=== PATIENT | female | born 1985 | race Caucasian/White ===

== ENCOUNTER 2016-04-28 11:45 | Emergency (ER) | payer OTHER ==
[~2016-04-28] VITALS: Ht 149.9 cm; Wt 66.2 kg
[~2016-04-28 11:45] MED LIST: CLEOCIN HCL300 MG PO; KEFLEX250 MG PO; PNV-DHA1 SGL PO
[2016-04-28 12:07] VITALS: BP 120/74
--- NOTE | 2016-04-28 12:55 | NUR ---
Pt taken to bed 8.
[2016-04-28] MEDS ORDERED: NACL 0.9% 1,000 ML IV ONE (13:05)
[2016-04-28] MEDS ORDERED: ONDANSETRON 4 MG/2 ML VIAL IVP ONE ×2 (13:05→15:05)
--- NOTE | 2016-04-28 13:14 | NUR ---
30/F presents to ED for evaluation of N/V/D since 0400 this morning. Pt states "I woke up to go to the gym and started having vomiting and diarrhea." Pt also reports having back pain "down my spine." Patient was noted with vomiting at bedisde. Emesis appears yellow in color, small amount in bag. Patient c/o nausea. Pt also c/o 9/10 pain to back, constant, also c/o pain to RLQ and epigastric area. Patient states "I have an ovarian cyst but I don't remember which side." Patient is AOX4, ambulatory with steady gait. Lungs clear bilaterally. Abdomen soft, non tender, hypoactive bowel sounds x4 quadrants. VSS at this time. Pt placed on youth nutritional monitor, pulse oximetry and blood pressure monitor. VSS.
--- NOTE | 2016-04-28 13:27 | NUR ---
Patient provided with warm blanket and placed in position of comfort. No visible signs of distress noted.
[2016-04-28] MEDS ORDERED: KETOROLAC 30 MG/ML VIAL IVP ONE (14:00)
--- NOTE | 2016-04-28 14:30 | NUR ---
Dr. Turk evaluating patient at bedside.
[2016-04-28] MEDS ORDERED: MORPHINE SULFATE 4 MG/ML SYR IVP ONE (14:35)
--- NOTE | 2016-04-28 14:46 | NUR ---
Patient taken to CT via w/c.
--- NOTE | 2016-04-28 14:55 | NUR ---
Pt returned from CT via w/c.
--- NOTE | 2016-04-28 15:02 | NUR ---
Pt c/o nausea at this time. Dr. Turk made aware.
--- NOTE | 2016-04-28 15:30 | NUR ---
Patient appears to be resting comfortably in bed. Vital Signs within normal limits. Respirations even and unlabored. Pain is improved 0/10. Pt provided with water, tolerating well. No vomiting noted.
[2016-04-28 15:59] VITALS: BP 107/58
--- NOTE | 2016-04-28 16:00 | NUR ---
IV removed, catheter intact and site benign. Applied folded 4x4 gauze and tape to stop bleeding.
--- NOTE | 2016-04-28 16:30 | NUR ---
Patient discharged with v/s stable. Written and verbal after care instructions given and explained. Patient alert, oriented and verbalized understanding of instructions. Ambulatory with steady gait. All questions addressed prior to discharge. ID band removed. Patient advised to follow up with PMD. Rx of IMODIUM,NORCO,ZOFRAN,MOTRIN given. Patient educated on indication of medication including possible reaction and side effects. Opportunity to ask questions provided and answered.
--- NOTE | 2016-04-28 16:30 | NUR ---
Chart checked and completed. The patient's care was reviewed and supervised by Isabell Cueva RN.
== END 2016-04-28 16:30 | disposition home or self-care (01) ==
LOC: MED 11:45
DX: R10.31 Right lower quadrant pain (principal); R10.13 Epigastric pain; R11.2 Nausea with vomiting, unspecified; R19.7 Diarrhea, unspecified
CPT/HCPCS: 36415; 74176; 80053; 81001; 81025; 83690; 85025; 87086; 96361; 96374; 96375; 96376; 99285; J1885; J2270; J2405; J7030

== ENCOUNTER 2016-08-18 22:35 | Emergency (ER) | payer OTHER ==
[~2016-08-18] VITALS: Ht 149.9 cm; Wt 66.2 kg
[2016-08-18 22:46] VITALS: BP 121/72
--- NOTE | 2016-08-19 00:07 | NUR ---
TO ER BED 3
--- NOTE | 2016-08-19 00:10 | NUR ---
31Y F BIB SELF C/O SORE THROAT AND BODY ACHES WITH LEFT EAR PAIN X 4 DAYS 9/10 PAIN. PT DENIES ANY VOMIT/DIARRHEA BUT STATES SHE IS NAUSEATED. PT DENIES ANY SOB, CP AT THE MOMENT. PT IS AAO X 4.
[2016-08-19] MEDS ORDERED: IBUPROFEN 800 MG TAB PO ONE (00:35)
[2016-08-19] MEDS ORDERED: PENICILLIN G BENZATHINE C-R 1.2 MU/2 ML SYR IM ONE (00:35)
[2016-08-19 01:05] VITALS: BP 114/63
--- NOTE | 2016-08-19 01:05 | NUR ---
Patient discharged with v/s stable. Written and verbal after care instructions given and explained. Patient verbalized understanding. Ambulatory with steady gait. All questions addressed prior to discharge. Advised to follow up with PMD.
== END 2016-08-19 01:05 | disposition home or self-care (01) ==
LOC: MED 22:35
DX: J02.0 Streptococcal pharyngitis (principal); R03.0 Elevated blood-pressure reading, without diagnosis of hypertension
CPT/HCPCS: 96372; 99283; J0558

== ENCOUNTER 2017-04-24 22:16 | Emergency (ER) | payer OTHER ==
[~2017-04-24] VITALS: Ht 149.9 cm; Wt 74.4 kg
[2017-04-24 22:18] VITALS: BP 119/62
--- NOTE | 2017-04-24 22:28 | NUR ---
AMBULATED TO ER OF4 FROM [facility]
--- NOTE | 2017-04-24 22:30 | NUR ---
PATIENT IS A 31 Y/O FEMALE WHO PRESENTS TO THE ED C/O CHEST PAIN. PT STATES, "I CHEST AND THROAT WERE HURTING TODAY." PT REPORTS 8/10 ACHING CHEST PAIN THAT DOES NOT RADIATE. PT REPORTS SOREATHROAT. PT DENIES CP, SOB, N/V/D. PT AAOX4, RR EVEN/UNLABORED. PT REPOSITIONED FOR COMFORT, PT SITTING IN CHAIR. ER MD DR. ROBERSON NOTIFIED. WILL CONTINUE TO MONITOR.
[2017-04-25] MEDS ORDERED: ONDANSETRON 4 MG ODT PO ONE (00:40)
[2017-04-25] MEDS ORDERED: KETOROLAC 60 MG/2 ML VIAL IM ONE (01:10)
[2017-04-25 02:29] VITALS: BP 125/73
--- NOTE | 2017-04-25 02:29 | NUR ---
Patient discharged with v/s stable. Written and verbal after care instructions given and explained. Patient alert, oriented and verbalized understanding of instructions. Ambulatory with steady gait. All questions addressed prior to discharge. ID band removed. Patient advised to follow up with PMD. Rx of IBUPROFEN 800MG AND ZOFRAN 4MG given. Patient educated on indication of medication including possible reaction and side effects. Opportunity to ask questions provided and answered.
== END 2017-04-25 02:29 | disposition home or self-care (01) ==
LOC: MED 22:16
DX: J06.9 Acute upper respiratory infection, unspecified (principal)
CPT/HCPCS: 71045; 81002; 81025; 93005; 96372; 99284; J1885; S0119

== ENCOUNTER 2017-07-14 02:00 | Emergency (ER) | payer OTHER ==
[~2017-07-14] VITALS: Ht 149.9 cm; Wt 77.1 kg
[2017-07-14 02:06] VITALS: BP 131/70
--- NOTE | 2017-07-14 02:13 | NUR ---
PT TAKEN TO BED 3
--- NOTE | 2017-07-14 02:14 | NUR ---
PATIENT PRESENTS TO ED WITH LEFT FLANK PAIN AND RIGHT LOWER PELVIC PAIN X4 DAYS. PT DENIES N/V/D; SKIN IS PINK/WARM/DRY; AAOX4 WITH EVEN AND STEADY GAIT; LUNGS CLEAR BL; HR EVEN AND REGULAR; PT DENIES ANY FEVER, CP, SOB, OR COUGH AT THIS TIME; PATIENT STATES PAIN OF 8/10 AT THIS TIME; VSS; PATIENT POSITIONED FOR COMFORT; HOB ELEVATED; BEDRAILS UP X1; BED DOWN. ER MD MADE AWARE OF PT STATUS.
[2017-07-14] MEDS ORDERED: NACL 0.9% 1,000 ML IV ONE (02:20)
--- NOTE | 2017-07-14 02:20 | NUR ---
Dr. Palencia evaluating patient.
[2017-07-14 02:52] LABS: APPEARANCE,URINE CLEAR (CLEAR); BILIRUBIN,URINE NEGATIVE (NEGATIVE); BLOOD, URINE TRACE-I (NEGATIVE); COLOR,URINE YELLOW (YELLOW); LEUKOCYTE ESTERASE ,URINE NEGATIVE (NEGATIVE); NITRITE, URINE NEGATIVE (NEGATIVE); PH,URINE 7.5 (5.0-9.0); UGLUCOSE NEGATIVE (NEGATIVE)
[2017-07-14 02:52] LABS: BASOPHILS # (AUTO) 0.4 K/uL (0.00-0.22); BASOPHILS % (AUTO) 4.4 % (0.0-2.0); EOSINOPHILS # (AUTO) 0.1 K/uL (0-0.4); EOSINOPHILS % (AUTO) 0.7 % (0.0-4.0); HEMATOCRIT 39.6 % (36-48); HEMOGLOBIN 13.3 g/dL (12.0-16.0); LYMPHOCYTES # (AUTO) 1.6 K/uL (2.5-16.5); LYMPHOCYTES % (AUTO) 15.3 % (20.5-51.1); MEAN CORPUSCULAR HEMOGLOBIN 30 pg (27-31); MEAN CORPUSCULAR HGB CONC 34 g/dL (33-37); MEAN CORPUSCULAR VOLUME 88.9 fL (80-94); MONOCYTES # (AUTO) 0.5 K/uL (0.8-1.0); NEUTROPHILS # (AUTO) 7.6 K/uL (1.8-7.7); NEUTROPHILS % (AUTO) 74.6 % (42.2-75.2); PLATELET COUNT (AUTO) 254 K/uL (140-450); RED BLOOD CELL COUNT(AUTO) 4.45 MIL/uL (4.20-5.40); RED CELL DISTRIBUTION WIDTH 12.1 % (11.6-13.7); WHITE BLOOD COUNT (AUTO) 10.2 K/uL (4.8-10.8)
[2017-07-14 03:03] LABS: ANION GAP 9.8 (8-16); CARBON DIOXIDE 29.5 mmol/L (21-32); CREATININE 0.8 mg/dL (0.6-1.3); POTASSIUM 3.3 mmol/L (3.5-5.1)
[2017-07-14 03:09] LABS: ALBUMIN 3.5 g/dL (3.4-5.0); TOTAL BILIRUBIN 0.3 mg/dL (0.0-1.0)
[2017-07-14 03:09] LABS: RBC,URINE 3-10 (FEW) /HPF (0-5); URINE AMORPHOUS URATE 2+ /HPF (None Seen); WBC,URINE 0-5 (RARE) /HPF (0-5)
--- NOTE | 2017-07-14 03:38 | NUR ---
Dr. Palencia re-evaluating patient.
--- NOTE | 2017-07-14 03:45 | NUR ---
X-Ray at bedside.
[2017-07-14] MEDS ORDERED: ONDANSETRON 4 MG/2 ML VIAL IVP ONE (04:15)
[2017-07-14 04:43] VITALS: BP 131/70
--- NOTE | 2017-07-14 04:43 | NUR ---
Patient discharged with v/s stable. Written and verbal after care instructions given and explained. Patient alert, oriented and verbalized understanding of instructions. Ambulatory with steady gait. All questions addressed prior to discharge. ID band removed. Patient advised to follow up with PMD. Rx of MOTRIN, ZOFRAN given. Patient educated on indication of medication including possible reaction and side effects. Opportunity to ask questions provided and answered.
== END 2017-07-14 04:43 | disposition home or self-care (01) ==
LOC: MED 02:00
DX: R10.31 Right lower quadrant pain (principal); R03.0 Elevated blood-pressure reading, without diagnosis of hypertension; R11.0 Nausea
CPT/HCPCS: 36415; 74018; 80053; 81001; 84702; 85025; 96361; 96374; 99285; J2405; J7030; Q0092

== ENCOUNTER 2017-09-22 15:37 | Emergency (ER) | payer OTHER ==
[~2017-09-22] VITALS: Ht 149.9 cm; Wt 77.1 kg
[2017-09-22 15:41] VITALS: BP 129/73
--- NOTE | 2017-09-22 15:50 | NUR ---
PT. CAME INTO THE ED W COMPLAINT OF L KNEE PAIN DOWN TO THE CALF X 3 WEEKS. PT. IS AAOX4, RR EVEN AND UNLABORED . PT. HAS 6/10 PAIN IN L KNEE AND CALF AND CALDERON THAT IS SHARP AND NON RADIATING. PT. STATES " I HAVE BEEN NAUSEOUS FOR 3 DAYS". PT. DENIES CHEST PAIN, DENIES SOB, DENIES DIAHRRHEA. ER MD NOTIFIED. SAFETY PRECAUTIONS IMPLEMENTED. AT BEDSIDE. WILL CONTIUNUE TO MONITOR.
[2017-09-22 16:33] LABS: BASOPHILS # (AUTO) 0.1 K/uL (0.00-0.22); BASOPHILS % (AUTO) 0.7 % (0.0-2.0); EOSINOPHILS # (AUTO) 0.1 K/uL (0-0.4); EOSINOPHILS % (AUTO) 0.8 % (0.0-4.0); HEMATOCRIT 38.8 % (36-48); LYMPHOCYTES # (AUTO) 1.3 K/uL (2.5-16.5); LYMPHOCYTES % (AUTO) 14.5 % (20.5-51.1); MEAN CORPUSCULAR HEMOGLOBIN 30 pg (27-31); MEAN CORPUSCULAR HGB CONC 33 g/dL (33-37); MEAN CORPUSCULAR VOLUME 88.3 fL (80-94); MONOCYTES # (AUTO) 0.3 K/uL (0.8-1.0); MONOCYTES % (AUTO) 3.3 % (1.7-9.3); NEUTROPHILS # (AUTO) 7.1 K/uL (1.8-7.7); NEUTROPHILS % (AUTO) 80.7 % (42.2-75.2); PLATELET COUNT (AUTO) 261 K/uL (140-450); RED CELL DISTRIBUTION WIDTH 12.8 % (11.6-13.7); WHITE BLOOD COUNT (AUTO) 8.8 K/uL (4.8-10.8)
[2017-09-22 16:55] LABS: CHLORIDE 103 mmol/L (98-107); CREATININE 0.9 mg/dL (0.6-1.3); GFR ARICAN-AMERICAN 95 mL/min (>90); GLUCOSE 107 mg/dL (74-106); SODIUM SERUM 137 mmol/L (136-145); UREA NITROGEN, BLOOD 10 mg/dL (7-18)
--- NOTE | 2017-09-22 16:55 | NUR ---
PT. RESTING COMFORTABLY IN BED, RR EVEN AND UNLABORED. WILL CONTINUE TO MONITOR.
[2017-09-22] MEDS ORDERED: LORazepam 2 MG/ML VIAL IM ONE (17:00)
[2017-09-22 17:01] LABS: ACETAMINOPHEN 1.1 ug/ml (10-30); ALBUMIN 3.7 g/dL (3.4-5.0); ASPARTATE AMINOTRANSFERASE 9 U/L (15-37); TOTAL BILIRUBIN 0.4 mg/dL (0.0-1.0)
[2017-09-22 17:02] LABS: SALICYLATE < 2.8 mg/dL (2.8-20.0)
[2017-09-22 17:24] LABS: BARBITURATE, URINE NEG. ng/ml (NEG <=200); BENZODIAZEPINE, URINE NEG. ng/mL (NEG <=200); CANNABINOID, URINE NEG. ng/mL (NEG <=50); COCAINE, URINE NEG. ng/mL (NEG <=300); OPIATE, URINE NEG. ng/mL (NEG <=2000); PHENCYCLIDINE SCREEN,URINE NEG. ng/mL (NEG <=25)
--- NOTE | 2017-09-22 18:00 | NUR ---
PT. RESTING COMFORTABLY IN BED, RR EVEN AND UNLABORED. WILL CONTINUE TO MONITOR.
[2017-09-22 18:11] VITALS: BP 132/72
== END 2017-09-22 18:11 | disposition home or self-care (01) ==
LOC: MED 15:37
DX: F41.9 Anxiety disorder, unspecified (principal)
CPT/HCPCS: 36415; 80053; 80305; 85025; 93005; 96372; 99285; G0480; G0482; J2060

== ENCOUNTER 2017-12-09 11:45 | Emergency (ER) | payer OTHER ==
[~2017-12-09] VITALS: Ht 149.9 cm; Wt 79.0 kg
[2017-12-09 12:05] VITALS: BP 137/77
--- NOTE | 2017-12-09 12:10 | NUR ---
PT TAKEN TO ROOM 10
--- NOTE | 2017-12-09 12:12 | NUR ---
32 YEAR OLD FEMALE RETURNED TO THE ED AFTER 2 DAYS DUE TO WORSENING COLD SYMPTOMS. PT STATED THAT 2 DAYS AGO SHE CAME BY AMBULACE AND DX WITH A SINUS INFECTION. SHE WAS GIVEN MEDICATION (ABX AND MUCINEX) BUT BELIEVES HER SYMPTOMS ARE GETTING WORSE. PT STATES HER RIGHT EAR IS CLOGGED AFFECTING HER HEARING, HER NECK IS STIFF AND BURNING, SHE FEELS A WARM SENSATION IN HER CHEST AND NECK. DENIES N/V/D. PT STATES THAT SHE DOES HAVE ANXIETY AND IS BEGINNIG TO HAVE ANXIETY S/SX. PT STATES THAT SHE FEELS WEAK AND FATIGUED. PT DENIES OTHER MEDICAL CONCERNS AND HX OTHER THAN ANXIETY.
[2017-12-09] MEDS ORDERED: DEXAMETHASONE 10 MG/ML VIAL IVP ONE (14:00)
[2017-12-09] MEDS ORDERED: cefTRIAXone 2,000 MG in DEXTROSE 5% 100 ML IV ONE (14:00)
[2017-12-09] MEDS ORDERED: KETOROLAC 15 MG/ML VIAL IVP ONE (14:05)
[2017-12-09] MEDS ORDERED: LORazepam 0.5 MG TAB PO ONE (14:05)
[2017-12-09] MEDS ORDERED: cefTRIAXone 2,000 MG VIAL ONE (14:27)
--- NOTE | 2017-12-09 14:40 | NUR ---
PT RESTING IN BED. BED LOCKED, IN LOWEST POSITON, SIDE RAIL ELEVATED.
--- NOTE | 2017-12-09 15:50 | NUR ---
Pt. d/c home; pt states she still has sinus presure but feels much better. Educated pt on signs of when to call PCP, return to ED and call 911. Removed pt IV. Answered all questions and educated pt on medication, symptoms. Pt's mother came to hop picker pt. Pt ambulated to exit. Denied futher questions.
[2017-12-09 16:00] VITALS: BP 137/77
== END 2017-12-09 15:50 | disposition home or self-care (01) ==
LOC: MED 11:45
DX: J32.9 Chronic sinusitis, unspecified (principal)
CPT/HCPCS: 81002; 81025; 96365; 96375; 99284; J0696; J1100; J1885

== ENCOUNTER 2018-05-03 14:24 | Emergency (ER) | payer OTHER ==
[~2018-05-03] VITALS: Ht 157.5 cm; Wt 83.6 kg
[2018-05-03 14:38] VITALS: BP 122/74
--- NOTE | 2018-05-03 16:13 | NUR ---
PT AMBULATED TO ER BED 02
--- NOTE | 2018-05-03 16:39 | NUR ---
PT BIB SELF C/O "SINUS PRESSURE" CALDERON, RUNNY NOSE, AND GENERALIZED BODY ACHES X 3 DAYS. PT ALSO STATED "THIS MORNING I HAD A PANIC ATTACK." PT A&OX4, BREATHING EVEN AND UNLABORED. NAD.
[2018-05-03] MEDS ORDERED: diphenhydrAMINE 50 MG CAP PO ONE (16:55)
[2018-05-03] MEDS ORDERED: KETOROLAC 30 MG/ML VIAL IM ONE (16:55)
[2018-05-03] MEDS ORDERED: METOCLOPRAMIDE 10 MG TAB PO ONE (16:55)
[2018-05-03 18:21] VITALS: BP 113/63
--- NOTE | 2018-05-03 18:22 | NUR ---
Patient discharged with v/s stable. Written and verbal after care instructions given and explained. Patient alert, oriented and verbalized understanding of instructions. Ambulatory with steady gait. All questions addressed prior to discharge. ID band removed. Patient advised to follow up with PMD. Rx of SUMATRIPTAN, IBUPROFEN given. Patient educated on indication of medication including possible reaction and side effects. Opportunity to ask questions provided and answered.
== END 2018-05-03 18:22 | disposition home or self-care (01) ==
LOC: MED 14:24
DX: R51 Headache (principal); F41.1 Generalized anxiety disorder; R11.2 Nausea with vomiting, unspecified; M54.6 Pain in thoracic spine
CPT/HCPCS: 81002; 81025; 96372; 99283; J1885; J8597; Q0163

== ENCOUNTER 2018-05-30 00:10 | Emergency (ER) | payer OTHER ==
[~2018-05-30] VITALS: Ht 149.9 cm; Wt 81.6 kg
[2018-05-30 00:23] VITALS: BP 125/76
--- NOTE | 2018-05-30 00:23 | NUR ---
PT TAKEN TO BED 7
--- NOTE | 2018-05-30 00:30 | NUR ---
32/F PRESENTS TO ED, C/O SORE THROAT X2 DAYS. REPORTS DIFFICULTY SWALLOWING. REPORTS RESOLVING PRODUCTIVE COUGH X2-3 WEEKS. REPORTS HEADACHE. PT DENIES FEVER, N/V. AOX4, GCS 15, RR EVEN AND UNLABORED. HX MIGRAINE
--- NOTE | 2018-05-30 00:59 | NUR ---
Dr. Slaughter evaluating patient at bedside.
[2018-05-30] MEDS ORDERED: KETOROLAC 30 MG/ML VIAL IM ONE (01:05)
[2018-05-30] MEDS ORDERED: DEXAMETHASONE 10 MG/ML VIAL PO ONE (01:05)
[2018-05-30 01:43] VITALS: BP 120/72
--- NOTE | 2018-05-30 01:43 | NUR ---
Patient discharged with v/s stable. Written and verbal after care instructions given and explained. Patient alert, oriented and verbalized understanding of instructions. Ambulatory with steady gait. All questions addressed prior to discharge. ID band removed. Patient advised to follow up with PMD. Rx of NAPROSYN, TYLENOL WITH CODEINE #3 given. Patient educated on indication of medication including possible reaction and side effects. Opportunity to ask questions provided and answered.
== END 2018-05-30 01:43 | disposition home or self-care (01) ==
LOC: MED 00:10
DX: J02.8 Acute pharyngitis due to other specified organisms (principal); B97.89 Other viral agents as the cause of diseases classified elsewhere; G43.909 Migraine, unspecified, not intractable, without status migrainosus
CPT/HCPCS: 87081; 87804; 96372; 99283; J1100; J1885

== ENCOUNTER 2018-06-01 09:40 | Emergency (ER) | payer OTHER ==
[~2018-06-01] VITALS: Ht 149.9 cm; Wt 81.6 kg
[2018-06-01 09:45] VITALS: BP 103/66
--- NOTE | 2018-06-01 09:49 | NUR ---
BIBA. PT PRESENTS WITH FLU LIKE SYMPTOMS X 4 DAYS. WORSENING X 1 DAY. AFEBRILE. VSS. DENIES N/V. REPORTS DIARRHEA TODAY. GENERALIZED PAIN 8/10 AT THIS TIME. TOOK RX NAPROXEN 0820. PATIENT POSITIONED FOR COMFORT; HOB ELEVATED; BEDRAILS UP X2; BED DOWN. ER MD MADE AWARE OF PT STATUS. PMH: DENIES NKA
[2018-06-01 10:20] VITALS: BP 103/66
--- NOTE | 2018-06-01 10:20 | NUR ---
Patient discharged with v/s stable. Written and verbal after care instructions given and explained. Patient alert, oriented and verbalized understanding of instructions. Ambulatory with steady gait. All questions addressed prior to discharge. ID band removed. Patient advised to follow up with PMD. Rx of Claritin-D and Ira Palomo given. Patient educated on indication of medication including possible reaction and side effects. Opportunity to ask questions provided and answered.
== END 2018-06-01 10:20 | disposition home or self-care (01) ==
LOC: MED 09:40
DX: B34.9 Viral infection, unspecified (principal); J04.0 Acute laryngitis
CPT/HCPCS: 99283

== ENCOUNTER 2018-06-19 18:11 | Emergency (ER) | payer OTHER ==
[~2018-06-19] VITALS: Ht 149.9 cm; Wt 83.9 kg
[2018-06-19 18:16] VITALS: BP 134/76
--- NOTE | 2018-06-19 18:19 | NUR ---
Gamaliel gomes in ED - 06/19/18 at 1820 by [facility] PT AMBULATED TO ED BED 08
--- NOTE | 2018-06-19 18:20 | NUR ---
PT AMBULATED TO ED BED 07
--- NOTE | 2018-06-19 18:29 | NUR ---
PT C/O BL EAR PAIN, RT EAR X1 WK WITH MILD DRAINAGE. VSS; PATIENT POSITIONED FOR COMFORT; HOB ELEVATED; BEDRAILS UP X1; BED DOWN. ER MD MADE AWARE OF PT STATUS.
[2018-06-19] MEDS ORDERED: cefTRIAXone 1,000 MG in LIDOCAINE MPF 1% - 5 mL VIAL 2.1 ML IM ONE (19:00)
--- NOTE | 2018-06-19 19:11 | NUR ---
REPORT GIVEN TO CARI DORAN
--- NOTE | 2018-06-19 19:30 | NUR ---
Patient discharged with v/s stable. Patient states she feels better and ready to go home, patient states 3/10 pain at this time; patient acting appropriatly. Written and verbal after care instructions given and explained. Patient alert, oriented and verbalized understanding of instructions. Ambulatory with steady gait. All questions addressed prior to discharge. ID band removed. Patient advised to follow up with PMD. Rx of Naprosyn, Amoxicillin, and Sudafed given. Patient educated on indication of medication including possible reaction and side effects. Opportunity to ask questions provided and answered.
[2018-06-19 19:37] VITALS: BP 129/73
== END 2018-06-19 19:30 | disposition home or self-care (01) ==
LOC: MED 18:11
DX: H66.91 Otitis media, unspecified, right ear (principal)
CPT/HCPCS: 96372; 99283; J0696; J2001

== ENCOUNTER 2018-09-03 00:53 | Emergency (ER) | payer OTHER ==
[~2018-09-03] VITALS: Ht 149.9 cm; Wt 83.0 kg
[2018-09-03 00:55] VITALS: BP 122/77
--- NOTE | 2018-09-03 00:57 | NUR ---
TO LOBBY A/W BED AMBULATORY
--- NOTE | 2018-09-03 01:37 | NUR ---
DR. MARTEL BEDSIDE EVALUATING PT
[2018-09-03] MEDS ORDERED: KETOROLAC 30 MG/ML VIAL IVP ONE (01:45)
[2018-09-03] MEDS ORDERED: NACL 0.9% 1,000 ML IV ONE (01:45)
[2018-09-03] MEDS ORDERED: METOCLOPRAMIDE 10 MG/2 ML INJ VIAL IVP ONE (01:45)
[2018-09-03] MEDS ORDERED: KETOROLAC 60 MG/2 ML VIAL IM ONE (02:13)
[2018-09-03] MEDS ORDERED: KETOROLAC 15 MG/ML VIAL ONE (02:17)
--- NOTE | 2018-09-03 02:25 | NUR ---
PT IS RESTING COMFORTABLY IN BED. PT STATES SHE IS FEELING BETTER AND IS JUST TIRED. VSS. SKIN PINK, WARM, DRY. BREATHING EVEN, UNLABORED.
[2018-09-03 03:27] VITALS: BP 119/75
--- NOTE | 2018-09-03 03:27 | NUR ---
Patient discharged with v/s stable. Written and verbal after care instructions given and explained. Patient alert, oriented and verbalized understanding of instructions. Ambulatory with steady gait. All questions addressed prior to discharge. ID band removed. Patient advised to follow up with PMD. Rx of Valium and Motrin given. Patient educated on indication of medication including possible reaction and side effects. Opportunity to ask questions provided and answered.
== END 2018-09-03 03:27 | disposition home or self-care (01) ==
LOC: MED 00:53
DX: M54.2 Cervicalgia (principal); R51 Headache; R11.0 Nausea
CPT/HCPCS: 81002; 81025; 96374; 96375; 99283; J1885; J2765; J7030

== ENCOUNTER 2019-01-31 17:52 | Emergency (ER) | payer OTHER ==
[~2019-01-31] VITALS: Ht 149.9 cm; Wt 82.1 kg
[2019-01-31 18:07] VITALS: BP 120/68
--- NOTE | 2019-01-31 18:35 | NUR ---
PT AMBULATED TO BED 09.
[2019-01-31] MEDS ORDERED: NACL 0.9% 1,000 ML IV ONE (18:50)
[2019-01-31] MEDS ORDERED: KETOROLAC 30 MG/ML VIAL IVP ONE (18:50)
[2019-01-31] MEDS ORDERED: diphenhydrAMINE 50 MG/ML VIAL IVP ONE (18:50)
[2019-01-31] MEDS ORDERED: PROCHLORPERAZINE 10 MG/2 ML VIAL IVP ONE (18:50)
--- NOTE | 2019-01-31 18:50 | NUR ---
Patient states she has had a headache that starts in the back of her head and radiates to the back of her right shoulder for the past 3 days. She describes it as a constant squeezing stiff pain. She has been taking ibprofen that has not relieved the pain. She denies any fever, chills, n/v.
--- NOTE | 2019-01-31 19:14 | NUR ---
Pt report given to ANEESH ALCALA. Transfer of care at this time.
[2019-01-31 20:23] VITALS: BP 120/68
--- NOTE | 2019-01-31 20:23 | NUR ---
PT DISCHARGED WITH PAPERWORK. RX NAPROXEN. EDUCATED PT REGARDING MEDICATION AND S/E. EDUCATED PT REGARDING D/C DIAGNOSIS AND INSTRUCTIONS. PT VERBALIZED UNDERSTANDING OF TEACHING. TOLD PT TO FOLLOW UP WITH PCP AND AND WHEN TO RETURN TO ED. PT VSS. DENIES HEADACHE. ALL QUESTIONS ANSWERED.
== END 2019-01-31 20:23 | disposition home or self-care (01) ==
LOC: MED 17:52
DX: G44.209 Tension-type headache, unspecified, not intractable (principal); Z98.890 Other specified postprocedural states
CPT/HCPCS: 96374; 96375; 99283; J0780; J1200; J1885; J7030; Q0163

== ENCOUNTER 2019-03-22 23:44 | Emergency (ER) | payer OTHER ==
[~2019-03-22] VITALS: Ht 149.9 cm; Wt 79.4 kg
[2019-03-23 00:05] VITALS: BP 140/90
--- NOTE | 2019-03-23 00:05 | NUR ---
TO BED # 09 AMBULATORY
--- NOTE | 2019-03-23 00:30 | NUR ---
33/F PRESENTS TO ED WITH SON, C/O SORE THROAT, X1 WEEK. PT STATED SHE HAD DX STREP THROAT 1 MONTH AGO, RX AMOXICILLIN WITH IMPROVEMENT BUT SYMPTOMS CAME BACK. DENIES FEVER/CHILLS. PT AWAKE AND ALERT, SKIN NORMAL COLOR WARM AND DRY, RR EVEN AND UNLABORED. DENIES MED HX OR RX.
[2019-03-23 00:57] VITALS: BP 140/90
--- NOTE | 2019-03-23 00:57 | NUR ---
Patient discharged with v/s stable. Written and verbal after care instructions given and explained. Patient alert, oriented and verbalized understanding of instructions. Ambulatory with steady gait. All questions addressed prior to discharge. ID band removed. Patient advised to follow up with PMD. Rx of Naproxyn given. Patient educated on indication of medication including possible reaction and side effects. Opportunity to ask questions provided and answered.
== END 2019-03-23 00:57 | disposition home or self-care (01) ==
LOC: MED 23:44
DX: J02.8 Acute pharyngitis due to other specified organisms (principal); B97.89 Other viral agents as the cause of diseases classified elsewhere; R59.0 Localized enlarged lymph nodes
CPT/HCPCS: 99282

== ENCOUNTER 2019-04-17 23:45 | Emergency (ER) | payer OTHER ==
[~2019-04-17] VITALS: Ht 149.9 cm; Wt 81.6 kg
[2019-04-18 00:15] VITALS: BP 124/76
[2019-04-18 01:24] VITALS: BP 124/76
== END 2019-04-18 01:24 | disposition home or self-care (01) ==
LOC: MED 23:45
DX: R05 Cough (principal); R07.9 Chest pain, unspecified; J02.9 Acute pharyngitis, unspecified
CPT/HCPCS: 71045; 87804; 99284; Q0092

== ENCOUNTER 2020-05-09 16:24 | Emergency (ER) | payer OTHER ==
[~2020-05-09] VITALS: Ht 149.9 cm; Wt 83.5 kg
[2020-05-09 16:57] VITALS: BP 116/77
[2020-05-09 19:24] LABS: BASOPHILS # (AUTO) 0.1 K/uL (0.00-0.22); BASOPHILS % (AUTO) 0.5 % (0.0-2.0); EOSINOPHILS % (AUTO) 0.3 % (0.0-4.0); HEMATOCRIT 41.7 % (36-48); HEMOGLOBIN 13.7 g/dL (12.0-16.0); LYMPHOCYTES # (AUTO) 2.1 K/uL (2.5-16.5); LYMPHOCYTES % (AUTO) 19.4 % (20.5-51.1); MEAN CORPUSCULAR HEMOGLOBIN 30 pg (27-31); MEAN CORPUSCULAR HGB CONC 33 g/dL (33-37); MEAN CORPUSCULAR VOLUME 89.7 fL (80-94); MONOCYTES # (AUTO) 0.5 K/uL (0.8-1.0); NEUTROPHILS % (AUTO) 74.8 % (42.2-75.2); PLATELET COUNT (AUTO) 310 K/uL (140-450); RED BLOOD CELL COUNT(AUTO) 4.65 MIL/uL (4.20-5.40); WHITE BLOOD COUNT (AUTO) 10.7 K/uL (4.8-10.8)
[2020-05-09] MEDS: NACL 0.9% 1,000 ML IV ONE (19:30)
[2020-05-09] MEDS: KETOROLAC 30 MG/ML VIAL IVP ONE (19:30)
[2020-05-09 19:39] LABS: ALBUMIN 3.7 g/dL (3.4-5.0); ANION GAP 16.2 (8-16); CARBON DIOXIDE 24.6 mmol/L (21-32); CREATININE 0.8 mg/dL (0.6-1.3); POTASSIUM 3.8 mmol/L (3.5-5.1); TOTAL BILIRUBIN 0.2 mg/dL (0.0-1.0)
[2020-05-09 20:28] VITALS: BP 117/71
== END 2020-05-09 20:28 | disposition home or self-care (01) ==
LOC: MED 16:24
DX: K52.9 Noninfective gastroenteritis and colitis, unspecified (principal); Z98.890 Other specified postprocedural states
CPT/HCPCS: 36415; 74176; 80053; 81025; 85025; 87040; 96361; 96374; 99284; J1885

== ENCOUNTER 2021-04-15 12:45 | Emergency (ER) | payer OTHER ==
[~2021-04-15] VITALS: Ht 149.9 cm; Wt 83.0 kg
[2021-04-15 13:10] VITALS: BP 141/79
[2021-04-15 13:38] LABS: BASOPHILS # (AUTO) 0.1 K/uL (0.00-0.22); BASOPHILS % (AUTO) 1.1 % (0.0-2.0); EOSINOPHILS # (AUTO) 0.1 K/uL (0-0.4); EOSINOPHILS % (AUTO) 1.2 % (0.0-4.0); HEMATOCRIT 42.4 % (36-48); HEMOGLOBIN 14.3 g/dL (12.0-16.0); LYMPHOCYTES # (AUTO) 1.7 K/uL (2.5-16.5); LYMPHOCYTES % (AUTO) 22.3 % (20.5-51.1); MEAN CORPUSCULAR HEMOGLOBIN 30 pg (27-31); MEAN CORPUSCULAR HGB CONC 34 g/dL (33-37); MEAN CORPUSCULAR VOLUME 88.2 fL (80-94); MONOCYTES # (AUTO) 0.4 K/uL (0.8-1.0); MONOCYTES % (AUTO) 4.7 % (1.7-9.3); NEUTROPHILS # (AUTO) 5.3 K/uL (1.8-7.7); NEUTROPHILS % (AUTO) 70.7 % (42.2-75.2); PLATELET COUNT (AUTO) 323 K/uL (140-450); RED BLOOD CELL COUNT(AUTO) 4.81 MIL/uL (4.20-5.40); RED CELL DISTRIBUTION WIDTH 12.8 % (11.6-13.7); WHITE BLOOD COUNT (AUTO) 7.5 K/uL (4.8-10.8)
[2021-04-15 14:00] LABS: ALBUMIN 3.7 g/dL (3.4-5.0); ANION GAP 11.6 (8-16); CARBON DIOXIDE 27.8 mmol/L (21-32); CREATININE 0.7 mg/dL (0.6-1.3); POTASSIUM 4.4 mmol/L (3.5-5.1); TOTAL BILIRUBIN 0.3 mg/dL (0.0-1.0)
--- NOTE | 2021-04-15 15:40 | NUR ---
VAG SWABS SENT TO LAB
[2021-04-15 17:16] LABS: APPEARANCE,URINE CLEAR (CLEAR); COLOR,URINE YELLOW (YELLOW); PH,URINE 6.5 (5.0-9.0)
[2021-04-15 17:17] LABS: BILIRUBIN,URINE NEGATIVE (NEGATIVE); BLOOD, URINE MODERATE (NEGATIVE); UGLUCOSE NEGATIVE (NEGATIVE)
[2021-04-15 17:19] LABS: NITRITE, URINE NEGATIVE (NEGATIVE)
[2021-04-15 17:20] LABS: LEUKOCYTE ESTERASE ,URINE NEGATIVE (NEGATIVE); RBC,URINE 0-5 /HPF (0-5); WBC,URINE 0-5 /HPF (0-5)
== END 2021-04-15 17:18 | disposition home or self-care (01) ==
LOC: MED 12:45
DX: R10.10 Upper abdominal pain, unspecified (principal); R10.30 Lower abdominal pain, unspecified; M54.50 Low back pain, unspecified
CPT/HCPCS: 36415; 74177; 80053; 81001; 81025; 82150; 83690; 84703; 85025; 87086; 87210; 87491; 99285; Q9967

== ENCOUNTER 2022-02-04 19:58 | Emergency (ER) | payer OTHER ==
[~2022-02-04] VITALS: Ht 149.9 cm; Wt 83.9 kg
[2022-02-04 21:17] VITALS: BP 131/89
--- NOTE | 2022-02-04 22:42 | NUR ---
Dr. Hernandez examining patient.
[2022-02-04] MEDS ORDERED: IBUPROFEN 600 MG TAB PO ONE (22:45)
[2022-02-04] MEDS ORDERED: NAPR-54 PO (23:42)
[2022-02-04 23:45] VITALS: BP 128/82
--- NOTE | 2022-02-04 23:45 | NUR ---
Patient discharged with v/s stable. Written and verbal after care instructions given and explained by Dr. Hernandez. Patient alert, oriented and verbalized understanding of instructions. Ambulatory with steady gait. All questions addressed prior to discharge. ID band removed. Patient advised to follow up with PMD. Rx of Naproxen given. Patient educated on indication of medication including possible reaction and side effects. Opportunity to ask questions provided and answered.
== END 2022-02-04 23:45 | disposition home or self-care (01) ==
LOC: MED 19:58
DX: S06.0X0A Concussion without loss of consciousness, initial encounter (principal); R11.2 Nausea with vomiting, unspecified; R42 Dizziness and giddiness; Z79.899 Other long term (current) drug therapy; Z98.890 Other specified postprocedural states; W01.190A Fall on same level from slipping, tripping and stumbling with subsequent striking against furniture, initial encounter; Y93.89 Activity, other specified; Y92.89 Other specified places as the place of occurrence of the external cause; Y99.8 Other external cause status
CPT/HCPCS: 70450; 81025; 99284

== ENCOUNTER 2022-02-09 13:35 | Emergency (ER) | payer OTHER ==
[~2022-02-09] VITALS: Ht 149.9 cm; Wt 86.0 kg
[~2022-02-09 13:35] MED LIST changes: -CLEOCIN HCL300 MG PO; -KEFLEX250 MG PO; +NAPR-54 PO; -PNV-DHA1 SGL PO
[2022-02-09 14:29] VITALS: BP 122/70
--- NOTE | 2022-02-09 14:35 | NUR ---
COVID, FLU SWABS DONE.
--- NOTE | 2022-02-09 14:40 | NUR ---
C/O COUGH, 7/10 CALDERON, STUFFY NOSE X 1 WEEK.
[2022-02-09] MEDS ORDERED: BPM/118L5 PO (15:19)
[2022-02-09] MEDS ORDERED: ALBU0.0912 IH (15:19)
[2022-02-09] MEDS ORDERED: DEXAMETHASONE 10 MG/ML VIAL IM ONE (15:20)
[2022-02-09] MEDS ORDERED: DEXAMETHASONE 10 MG/ML VIAL ONE (16:31)
[2022-02-09 17:50] VITALS: BP 120/64
--- NOTE | 2022-02-09 17:50 | NUR ---
Patient discharged with v/s stable. Written and verbal after care instructions given and explained to parent/guardian. Parent/Guardian verbalized understanding of instructions. Ambulatory with steady gait. All questions addressed prior to discharge. ID band removed. Parent/Guardian advised to follow up with PMD. Rx of BUZZTILMAAME DM LIQUID given. Parent/Guardian educated on indication of medication including possible reaction and side effects. Opportunity to ask questions provided and answered.
== END 2022-02-09 17:50 | disposition home or self-care (01) ==
LOC: MED 13:35
DX: J06.9 Acute upper respiratory infection, unspecified (principal); Z20.822 Contact with and (suspected) exposure to COVID-19
CPT/HCPCS: 87426; 87804; 96372; 99283; J1100